=== PATIENT | female | born 1985 | race Caucasian/White ===

== ENCOUNTER → 2023-04-28 | Emergency (ER) | payer SELFPAY ==
--- OUTSIDE RECORDS SUMMARY | 2023-04-28 03:02 | XMS REPORT | Continuity of Care Document ---
Author Name Unknown Address [address] [place] [address] [phone] [facility] Address [facility] [place] [address] Care Team Providers Care Specialty Development Consultant Name Role Phone NONE, NONE Primary Care Physician Unavailab DR WILDER Rosales Attending Clinician Javier HUANG, DR BARRETT Attending Clinician Unavailable DR WILDER PINZON Admitting Clinician Javier HUANG, DR BARRETT Admitting Clinician Unavailable Payers Payer Name Policy Type Policy Number Effective Date Expirati on Date Source 1000 [id number] 2022 00:00:00 Allergies, Adverse Reactions, Alerts Allergy Name Allergy Type Status Severity Reaction(s) Onset Date Inactive Date Treating Clinician Comments Source No Known Drug Allergie s DA Active Unknown 09-22 00:00: 00 [facility] Vital Signs Vital Name Observation Time Observation Value Comments S ource Height 2022-11-04 16:26:00 175.26 CM Weight 2022-11-04 16:26:00 92.3 KG Height 2022-09-11 17:07:00 175.26 CM Weight 2022-09-11 17:07:00 90.71 KG Encounters Start Date/Time End Date/Time Encounter Type Admission Type Attending Clinicians Care Facility Care Department Encounter ID Source 2022-11-04 16:17:00 2022-11-04 18:49:00 Emergency E WILDER PINZON [facility] [id number] [facility] 2022-09-11 16:51:00 2022-09-11 19:24:00 Emergency E ARNOLD HUANG [facility] [id number] [facility] Results Test Description Test Time Test Comments Results Result Co mments Source LIPASE [id number] 17:41:00* Test Item Value Reference Range Interpretation Comme nts LIPASE (test code = 60A) 30 IU/L 12-53 TROPONIN [id number] 17:40:00* Test Item Value Reference Range Interpretation Comme nts TROPONIN I (test code = A84) <2.50 pg/mL 0.00-45.20 BRAIN NATRIURETIC [id number] 17:40:00* Test Item Value Reference Range Interpretation Comme nts BNP (test code = A74) 14 pg/mL See_Comment [Automated [employer]] The system which generated this result transmitted reference range: <=100. The reference range was not used to interpret this result as normal/abnormal. PRO TIME AND [id number] 17:37:00* Test Item Value Reference Range Interpretation Comme nts PT (test code = TT) 10.8 s 9.8-13.6 INR (test code = INR) 0.9 INRH (test code = INRH) SUGGESTED THERAPEUTIC RANGE FOR INR: 2.5 - 3.5 For Patients with Prosthetic Valves or Patients with recurrent Thromboembolic Events 2.0 - 3.0 For Most Other Applications PTT (test code = PTT) 27.5 s 20.2-38.0 PTTH (test code = PTTH) To monitor the effectiveness of heparin, we offer the Anti-Xa (Heparin Assay). It can be used for either unfractionated or LMW Heparin. Order Code is ANTI-XA URINE [id number] 17:29:00* Test Item Value Reference Range Interpretation Comme nts PREG UR (test code = PGU) NEGATIVE NEGATIVE URINALYSIS WITH [id number] 17:29:00* Test Item Value Reference Range Interpretation Comme nts COLOR (test code = COLU) YELLOW YELLOW CLARITY (test code = CLA) CLEAR CLEAR GLUCOSE UR (test code = UA GLUCOSE) NEGATIVE NEGATIVE BILI UR (test code = BILE) NEGATIVE NEGATIVE KETONES UR (test code = IRINA) NEGATIVE NEGATIVE SP GRAVITY (test code = SPGR) 1.016 1.005-1.030 PH UR (test code = PH) 6.0 4.5-8.0 PROTEIN UR (test code = PU) NEGATIVE NEGATIVE UROBIL UR (test code = UROQ) 0.2 EU/dL 0.2-1.0 NITRITE UR (test code = NITRITE) POSITIVE NEGATIVE A BLOOD UR (test code = UA BLOOD) NEGATIVE NEGATIVE LEUK ES UR (test code = LEUK) 1+ NEGATIVE A WBC UR (test code = UWBC) 6 /HPF 0-5 H RBC UR (test code = URBC) 2 /HPF 0-2 EPITH UR (test code = UEPC) FEW /LPF FEW BACTERIA UR (test code = UBACT) MANY /HPF NONE A CAST UR (test code = CAST) /LPF NONE CRYSTAL UR (test code = CRYU) / LPF NONE MUCUS UR (test code = MUC) / HPF NONE AMORPH UR (test code = BERNARD) / HPF NONE TRICH UR (test code = UTRICH) /HPF NONE YEAST UR (test code = UY) /HPF NONE SPERM UR (test code = USPERM) /HPF NONE CBC (INCLUDES AUTOMATED DIFFERENTIAL)2022-11-04 17:26:00* Test Item Value Reference Range Interpretation Comme nts WBC (test code = WBC) 6.2 10\S\3/uL 4.5-11.0 RBC (test code = RBC) 3.84 10\S\6/uL 4.30-5.70 L HGB (test code = HBG) 11.8 g/dL 12.0-15.5 L HCT (test code = HCT) 36.0 % 35.0-44.0 MCV (test code = MCV) 93.8 fL 81.0-99.0 MCH (test code = MCH) 30.7 pg 27.0-31.0 MCHC (test code = MCHC) 32.8 g/dL 32.0-36.0 RDW (test code = RDW) 12.3 % 11.5-14.5 PLT (test code = PLT) 304 10\S\3/uL 130-400 MPV (test code = MPV) 10.0 fL 9.4-12.4 NEUTROP # (test code = NE#) 3.7 10\S\3/uL 1.6-8.0 LYMPH # (test code = LY#) 1.9 10\S\3/uL 1.1-3.5 MONOCYTE # (test code = MO#) 0.5 10\S\3/uL 0.0-1.1 EOSINOPH # (test code = EO#) 0.1 10\S\3/uL 0.0-0.7 BASOPHIL # (test code = BA#) 0.0 10\S\3/uL 0.0-0.3 IG # (test code = IG#) 0.02 10\S\3/uL 0.00-0.06 NRBC # (test code = NRBC#) 0.00 10\S\3/uL 0.00-0.01 NEUTROPH % (test code = NE%) 59.2 % 35.0-73.0 LYMPH % (test code = LY%) 30.7 % 20.0-55.0 MONO % (test code = MO%) 7.7 % 2.5-10.0 EOSINOPH % (test code = EO%) 1.6 % 0.0-5.0 BASOPHIL % (test code = BA%) 0.5 % 0.0-2.0 IG % (test code = IG%) 0.3 % 0.0-0.8 NRBC% (test code = NRBC%) 0.0 % 0.0-0.2 MANDIFF (test code = MDIFF) NO XR CHEST 1 VIEW [id number] 16:57:44 [facility] : 1985 Sex: FEXAMINATION:XR CHEST 1 VIEW PORTABLECLINICAL INDICATION:Female, 36 years year old with Chest painCOMPARISON: Chest radiograph 09/23/2011FINDINGS:Single view(s) of the chest submitted.Support Devices: None.Heart: Cardiac silhouette is normal in size.Mediastinum: Mediastinal contours are within normal limits for age.Lungs: Lungs are well aerated and clear. Pulmonary vessels are normal in size. Pleura: No pleural effusion is identified. No pneumothorax is present.Bones: No acute osseous abnormality. IMPRESSION:No acute cardiopulmonary disease.Electronically signed by: Caitlin Gutierrez MD 11/04/2022 4:57 PM CDTWorkstation: [id number] AND LIPASE *WW*2022-09-11 18:21:00* Test Item Value Reference Range Interpretation Comme nts AMYLASE (test code = 10A) 61 U/L 28-100 LIPASE (test code = 60A) 38 IU/L 12-53 COMPREHENSIVE METABOLIC MEDRANO *WW*2022-09-11 18:21:00* Test Item Value Reference Range Interpretation Comme nts GLUCOSE (test code = 06D) 99 mg/dL 75-100 SODIUM (test code = 01A) 138 mmol/L 136-145 POTASSIUM (test code = 01B) 3.8 mmol/L 3.6-5.1 CHLORIDE (test code = 04A) 106 mmol/L 98-107 CO2 (test code = 02A) 27 mmol/L 20-31 ANION GAP (test code = ANG) 8.8 mmol/L BUN (test code = 05D) 9 mg/dL 9-23 CREATININE (test code = 03E) 0.8 mg/dL 0.6-1.0 GFR (test code = GFR) 94 mL/min/1.73m\S\2 See_Comment [Automated message] The system which generated this result transmitted reference range: >=90. The reference range was not used to interpret this result as normal/abnormal. GFR (test code = GFRAA) 109 mL/min/1.73m\S\2 See_Comment [Automated message] The system which generated this result transmitted reference range: >=90. The reference range was not used to interpret this result as normal/abnormal. EGFR (test code = EGFR) eGFR BY CKD-EPI CALCULATION IS NOT RECOMMENDED FOR PATIENTS UNDER 18 YEARS OF AGE. BUN/CREA (test code = BCR) 11 12-20 L CALCIUM (test code = 09D) 8.4 mg/dL 8.3-10.6 BILI TOTAL (test code = 11A) 0.3 mg/dL 0.2-1.0 PROTEIN (test code = 07D) 6.3 g/dL 5.7-8.2 ALBUMIN (test code = 08D) 4.0 g/dL 3.2-4.8 GLOBULIN (test code = GLB) 2.3 g/dL 1.5-3.8 ALB/GLOB (test code = AGRR) 1.8 1.0-2.6 ALK PHOS (test code = 35A) 38 IU/L 46-116 L AST (test code = 30A) 15 IU/L See_Comment [Automated message] The system which generated this result transmitted reference range: <=33. The reference range was not used to interpret this result as normal/abnormal. ALT (test code = 31A) 10 IU/L 10-49 CARDIAC PROFILE 2022-09-11 18:20:00* Test Item Value Reference Range Interpretation Comme nts TROPONIN I (test code = A84) <2.50 pg/mL 0.00-45.20 CBC (INCLUDES AUTOMATED DIFFERENTIAL)*[id number] 18:09:00* Test Item Value Reference Range Interpretation Comme nts WBC (test code = WBC) 5.5 10\S\3/uL 4.5-11.0 HGB (test code = HBG) 12.4 g/dL 12.0-15.5 HCT (test code = HCT) 38.1 % 35.0-44.0 MCV (test code = MCV) 91.4 fL 81.0-99.0 MCH (test code = MCH) 29.7 pg 27.0-31.0 MCHC (test code = MCHC) 32.5 g/dL 32.0-36.0 RDW (test code = RDW) 12.2 % 11.5-14.5 PLT (test code = PLT) 244 10\S\3/uL 130-400 MPV (test code = MPV) 10.1 fL 9.4-12.4 NEUTROP # (test code = NE#) 3.0 10\S\3/uL 1.6-8.0 LYMPH # (test code = LY#) 1.9 10\S\3/uL 1.1-3.5 MONOCYTE # (test code = MO#) 0.5 10\S\3/uL 0.0-1.1 EOSINOPH # (test code = EO#) 0.1 10\S\3/uL 0.0-0.7 BASOPHIL # (test code = BA#) 0.0 10\S\3/uL 0.0-0.3 IG # (test code = IG#) 0.02 10\S\3/uL 0.00-0.06 NRBC # (test code = NRBC#) 0.00 10\S\3/uL 0.00-0.01 NEUTROPH % (test code = NE%) 54.7 % 35.0-73.0 LYMPH % (test code = LY%) 33.6 % 20.0-55.0 MONO % (test code = MO%) 9.3 % 2.5-10.0 EOSINOPH % (test code = EO%) 1.5 % 0.0-5.0 BASOPHIL % (test code = BA%) 0.5 % 0.0-2.0 IG % (test code = IG%) 0.4 % 0.0-0.8 NRBC% (test code = NRBC%) 0.0 % 0.0-0.2 MANDIFF (test code = WMDIFF) NO NO RBC MORPH (test code = WRBCMOR) NORMAL
[2023-04-28 04:27] LABS: Protime INR 1.08
[2023-04-28 04:30] LABS: Absolute Lymphocytes (CBC) 1.6 K/uL (0.7-4.9); Hematocrit 37.6 % (36.0-45.0); Lymphocytes % 38.3 % (15.3-44.8); MPV 8.4 fL (7.6-11.3); Platelets 268 thou/uL (152-406); RBC Red Blood Cell Count 4.18 M/uL (3.86-4.86)
[2023-04-28 04:40] LABS: ALT/SGPT 17 U/L (13-56); AST/SGOT 9 U/L (15-37); Albumin 3.5 g/dL (3.4-5.0); Alkaline Phosphatase 50 U/L (45-117); BUN Blood Urea Nitrogen 9 mg/dL (7-18); Bicarbonate 29 mEq/L (21-32); Bilirubin Direct 0.1 mg/dL (0-0.2); Bilirubin Indirect, Calculated 0.2 mg/dL (0.2-0.8); Bilirubin Total 0.3 mg/dL (0.2-1.0); Glomerular Filtration Rate 81 ml/min (=/>90); Glucose Level 101 mg/dL (74-106); Lipase 31 U/L (13-75); Magnesium 2.1 mg/dL (1.6-2.4); NT PRO-BNP 47 pg/mL (<125); Potassium 3.6 mEq/L (3.5-5.1); Protein, Total 7.4 g/dL (6.4-8.2); Sodium Level 138 mEq/L (136-145); Troponin High Sensitivity 4.8 pg/mL (<58.9)
[2023-04-28 04:46] LABS: C-Reactive Protein < 2.90 mg/L (<3.00)
[2023-04-28 05:30] LABS: Thyroid Stimulating Hormone 0.674 uIU/mL (0.358-3.740)
--- NOTE | 2023-04-28 06:45 | EDPHYS ---
Physician Documentation [facility] Name: Sari Wilde Age: 37 yrs Sex: Female : 1985 Arrival Date: 04/28/2023 Time: 02:59 Bed 4 Private MD: ED Physician Ishmael Steen HPI: 04/28 03:16 This 37 yrs old Female presents to ER via Ambulatory with complaints of PT states she sp4 has been having chest pain for 3+ weeks. 03:29 History 7-year-old female with no significant past medical history presents with acute sp4 onset all midsternal sharp stabbing chest pain starting 4 days ago/ patient states that she has had worsening midsternal stabbing chest pains today associated with shortness of breath. Pains are nonexertional. Patient has no history of inborn cardiac defects, history is negative for prior coronary artery disease. . Historical: - Allergies: 03:14 No Known Allergies; as6 - PMHx: 03:14 None; as6 - PSHx: 03:14 None; as6 - Immunization history:: Adult Immunizations up to date. - Social history:: Smoking status: Patient reports the use of cigarette tobacco products. - Family history:: not pertinent. ROS: 03:29 Constitutional: Negative for fever, chills, and weight loss, positive chest pain sp4 03:29 All other systems are negative, Exam: 03:29 Constitutional: This is a well developed, well nourished patient who is awake, alert, sp4 and in no acute distress. Head/Face: Normocephalic, atraumatic. Eyes: Pupils equal round and reactive to light, extra-ocular motions intact. Lids and lashes normal. Conjunctiva and sclera are not injected. Cornea within normal limits. Periorbital areas with no swelling, redness, or edema. ENT: Nares patent. No nasal discharge, no septal abnormalities noted. Tympanic membranes are normal and external auditory canals are clear. Oropharynx with no redness, swelling, or masses, exudates, or evidence of obstruction, uvula midline. Mucous membranes moist. Neck: Trachea midline, no thyromegaly or masses palpated, and no cervical lymphadenopathy. Supple, full range of motion without nuchal rigidity, or vertebral point tenderness. Chest/axilla: Normal chest wall appearance and motion. Nontender with no deformity. No lesions are appreciated. Cardiovascular: Regular rate and rhythm with a normal S1 and S2. No gallops, murmurs, or rubs. Normal PMI, no JVD. No pulse deficits. Respiratory: Lungs have equal breath sounds bilaterally, clear to auscultation and percussion. No rales, rhonchi or wheezes noted. No increased work of breathing, no retractions or nasal flaring. Abdomen/GI: Soft, non-tender, with normal bowel sounds. No distension or tympany. No guarding or rebound. No evidence of tenderness throughout. Back: No spinal tenderness. No costovertebral tenderness. Skin: Warm, dry with normal turgor. Normal color with no rashes, no lesions, and no evidence of cellulitis. MS/ Extremity: Pulses equal, no cyanosis. Neurovascular intact. Full, normal range of motion. Neuro: Awake and alert, GCS 15, oriented to person, place, time, and situation. Cranial nerves II-XII grossly intact. Motor strength 5/5 in all extremities. Sensory grossly intact. Psych: Awake, alert, with orientation to person, place and time. Behavior, mood, and affect are within normal limits 05:01 ECG was reviewed by the Attending Physician. EKG at 0 339 reveals normal sinus rhythm sp4 overall normal EKG, rate 74 Vital Signs: 03:14 BP 125 / 85; Pulse 84; Resp 18 S; Temp 98.4(O); Pulse Ox 97% on R/A; Weight 86.64 kg as6 (R); Height 5 ft. 9 in. (R); Pain 5/10; 04:30 Pulse 78; Resp 14; Pulse Ox 100% ; jj7 05:22 BP 125 / 61; Pulse 69; Resp 14; Pulse Ox 100% ; jj7 06:30 BP 114 / 80; Pulse 88; Resp 17; Pulse Ox 98% ; jj7 03:14 Body Mass Index 28.21 (86.64 kg, 175.26 cm) as6 03:14 Pain Scale: Adult as6 MDM: 03:22 Patient medically screened. sp4 06:36 ED course: CT - TECHNIQUE: Axial computed tomographic angiography images of the chest sp4 with intravenous contrast. Sagittal and coronal reformatted images were created and reviewed. This CT exam was performed using one or more of the following dose reduction techniques: automated exposure control, adjustment of the mA and/or kV according to patient size, and/or use of iterative reconstruction technique. MIP reconstructed images were created and reviewed. COMPARISON: No relevant prior studies available. FINDINGS: Pulmonary arteries: Unremarkable. No pulmonary embolism. Aorta: No acute findings. No thoracic aortic aneurysm. Inferior vena cava: Reflux of contrast into the IVC and hepatic veins. Lungs: Unremarkable. No mass. No consolidation. Pleural space: Unremarkable. No significant effusion. No pneumothorax. Heart: Unremarkable. No cardiomegaly. No significant pericardial effusion. No evidence of RV dysfunction. Bones/joints: No acute fracture. No dislocation. Soft tissues: Unremarkable. Lymph nodes: Unremarkable. No enlarged lymph nodes. Gallbladder and bile ducts: Gallbladder is surgically absent. IMPRESSION: No acute finding in the chest. No evidence of pulmonary embolism. 06:41 Differential Diagnosis chest discomfort . Data reviewed: vital signs, nurses notes, lab sp4 test result(s), EKG, radiologic studies, CT scan, plain films. Consideration of Admission/Observation Escalation of care including admission/observation considered. ED course: Workup today is basically normal, normal thyroid function, normal electrolyte panel normal EKG and normal CTA of the chest. Patient will be referred to deployment specialist on outpatient basis. This time there is no signs of emergent impending medical problem. Patient stable for discharge home. Will refer to Dr. Michelle with Cardiology.. 04/28 03:17 Order name: Basic Metabolic Panel; Complete Time: 06:36 sp4 04/28 03:17 Order name: CBC with Diff; Complete Time: 04:56 sp4 04/28 03:17 Order name: LFT's; Complete Time: 06:36 sp4 04/28 03:17 Order name: Magnesium; Complete Time: 06:36 sp4 04/28 03:17 Order name: NT PRO-BNP; Complete Time: 06:36 sp4 04/28 03:17 Order name: PT-INR; Complete Time: 04:56 sp4 04/28 03:17 Order name: Troponin HS; Complete Time: 06:36 sp4 04/28 04:20 Order name: C-Reactive Protein; Complete Time: 06:36 EDMS 04/28 04:20 Order name: Lipase; Complete Time: 06:36 EDMS 04/28 05:13 Order name: T4 Free; Complete Time: 06:36 EDMS 04/28 05:13 Order name: Thyroid Stimulating Hormone; Complete Time: 06:36 EDCO 04/28 03:17 Order name: XRAY Chest (1 view) 4 04/28 05:08 Order name: CT Chest Angio 4 04/28 03:17 Order name: EKG; Complete Time: 03:18 4 04/28 03:17 Order name: Cardiac monitoring; Complete Time: 03:56 4 04/28 03:17 Order name: EKG - Nurse/Tech; Complete Time: 03:56 sp4 04/28 03:17 Order name: IV Saline Lock; Complete Time: 03:56 4 04/28 03:17 Order name: Labs collected and sent; Complete Time: 03:56 4 04/28 03:17 Order name: O2 Per Protocol; Complete Time: 05:03 4 04/28 03:17 Order name: O2 Sat Monitoring; Complete Time: 05:03 4 EC:01 Rate is 74 beats/min. Rhythm is regular, Normal Sinus Rhythm. QRS [place] is Normal. MO sp4 interval is normal. QRS interval is normal. QT interval is normal. No Q waves. T waves are Normal. No ST changes noted. Clinical impression: Normal ECG. Interpreted by me. Reviewed by me. Administered Medications: No medications were administered Disposition Summary: 04/28/23 06:44 Discharge Ordered Problem: new sp4 Symptoms: have improved sp4 Condition: Stable sp4 Diagnosis - Chest pain, unspecified sp4 - Atypical chest pain sp4 Followup: sp4 - With: Tashi Michelle MD - When: 7 - 10 days - Reason: Recheck today's complaints Discharge Instructions: - Discharge Summary Sheet sp4 - Nonspecific Chest Pain, Adult, [id number] sp4 Forms: - Patient Portal Instructions sp4 Signatures: Dispatcher [employer] Blake Rodriguez RN RN as6 Ishmael Steen MD MD sp4 Corrections: (The following items were deleted from the chart) 04:20 03:29 C-REACTIVE PROTEIN+C.LAB.BRZ ordered. EDMS EDMS 04:20 03:29 LIPASE+C.LAB.BRZ ordered. EDMS EDMS 05:13 05:04 THYROID STIMULAT HORMONE+C.LAB.BRZ ordered. EDMS EDMS 05:13 05:04 T4 FREE+C.LAB.BRZ ordered. EDMS EDMS
--- NOTE | 2023-04-28 06:45 | ER ---
Nurse's Notes [facility] Name: Sari Wilde Age: 37 yrs Sex: Female : 1985 Arrival Date: 04/28/2023 Time: 02:59 Bed 4 Private MD: Diagnosis: Chest pain, unspecified;Atypical chest pain Presentation: 04/28 03:14 Chief complaint: Patient states: chest pain for the last 4 days with worsening pain as6 tonight. Coronavirus screen: At this time, the client does not indicate any symptoms associated with coronavirus-19. Ebola Screen: No symptoms or risks identified at this time. Initial Sepsis Screen: Does the patient meet any 2 criteria? No. Patient's initial sepsis screen is negative. Does the patient have a suspected source of infection? No. Patient's initial sepsis screen is negative. Risk Assessment: Do you want to hurt yourself or someone else? Patient reports no desire to harm self or others. Onset of symptoms was April 28, 2023. 03:14 Acuity: DARION 3 as6 03:14 Method Of Arrival: Ambulatory as6 Historical: - Allergies: 03:14 No Known Allergies; as6 - PMHx: 03:14 None; as6 - PSHx: 03:14 None; as6 - Immunization history:: Adult Immunizations up to date. - Social history:: Smoking status: Patient reports the use of cigarette tobacco products. - Family history:: not pertinent. Screenin:30 [facility] ED Fall Risk Assessment (Adult) History of falling in the last 3 months, jj7 including since admission No falls in past 3 months (0 pts) Confusion or Disorientation No (0 pts) Intoxicated or Sedated No (0 pts) Impaired Gait No (0 pts) Mobility Assist Device Used No (0 pt) Altered Elimination No (0 pt) Score/Fall Risk Level 0 - 2 = Low Risk Oriented to surroundings, Maintained a safe environment, Educated pt \T\ family on fall prevention, incl call for assistance when getting out of bed. Abuse screen: Denies threats or abuse. Nutritional screening: No deficits noted. Tuberculosis screening: No symptoms or risk factors identified. Assessment: 03:30 General: Appears in no apparent distress. comfortable, Behavior is calm, cooperative, jj7 appropriate for age. Pain: Complains of pain in left breast. Cardiovascular: Reports chest pain, Chest pain began 4 days ago. Vital Signs: 03:14 BP 125 / 85; Pulse 84; Resp 18 S; Temp 98.4(O); Pulse Ox 97% on R/A; Weight 86.64 kg as6 (R); Height 5 ft. 9 in. (R); Pain 5/10; 04:30 Pulse 78; Resp 14; Pulse Ox 100% ; jj7 05:22 BP 125 / 61; Pulse 69; Resp 14; Pulse Ox 100% ; jj7 06:30 BP 114 / 80; Pulse 88; Resp 17; Pulse Ox 98% ; jj7 03:14 Body Mass Index 28.21 (86.64 kg, 175.26 cm) as6 03:14 Pain Scale: Adult as6 Vitals: 04:30 Cardiac Rhythm Assessment Regular. jj7 ED Course: 03:02 Patient arrived in ED. jj6 03:14 Arm band placed on. as6 03:15 Triage completed. as6 03:16 Ishmael Steen MD is Attending Physician. sp4 03:28 XRAY Chest (1 view) In Process Unspecified. EDMS 03:30 Patient has correct armband on for positive identification. Bed in low position. Call jj7 light in reach. Adult w/ patient. Client placed on continuous cardiac and pulse oximetry monitoring. NIBP monitoring applied. awake overnight monitor on. Warm blanket given. 03:57 Inserted saline lock: 20 gauge in left antecubital area, using aseptic technique. Blood oe collected. 03:58 Basic Metabolic Panel Sent. oe 03:58 CBC with Diff Sent. oe 03:58 LFT's Sent. oe 03:58 Magnesium Sent. oe 03:58 NT PRO-BNP Sent. oe 03:58 PT-INR Sent. oe 03:58 Troponin HS Sent. oe 05:47 CT Chest Angio In Process Unspecified. EDMS 06:43 Tashi Michelle MD is Referral Physician. sp4 07:02 No provider procedures requiring assistance completed. IV discontinued, intact, jj7 bleeding controlled, No redness/swelling at site. Pressure dressing applied. Administered Medications: No medications were administered Medication: 03:30 VIS not applicable for this client. jj7 Outcome: 06:44 Discharge ordered by . sp4 07:02 Discharged to home ambulatory, with significant other, jj7 07:02 Condition: good 07:02 Discharge instructions given to patient, Instructed on discharge instructions, follow up and referral plans. Demonstrated understanding of instructions, follow-up care, 07:03 Patient left the ED. jj7 Signatures: Dispatcher [employer] EDRI Dakota Womack Jennifer jj6 Blake Ríos RN RN as6 Roro Carvalho RN RN jj7 Ishmael Steen MD MD sp4
[2023-04-28 07:45] VITALS: TEMP 98.4
[2023-04-28 07:59] VITALS: BP 114/80; O2SAT 98
--- NOTE | 2023-04-28 14:47 | RAD REPORT ---
EXAM DESCRIPTION: CT - Chest Angio - 04/28/2023 6:37 am CLINICAL HISTORY: The patient is 37 years old and is Female; CHEST PAIN TECHNIQUE: Axial computed tomographic angiography images of the chest with intravenous contrast. Sag ittal and coronal reformatted images were created and reviewed. TECHNIQUE: Axial computed tomographic angiography images of the chest with intravenous contrast. S agittal and coronal reformatted images were created and reviewed. This CT exam was performed using one or more of the following dose reduction techniques: automated exposure control, adjustment of t he mA and/or kV according to patient size, and/or use of iterative reconstruction technique. MIP re constructed images were created and reviewed. COMPARISON: No relevant prior studies available. FINDINGS: Pulmonary arteries: Unremarkable. No pulmonary embolism. Aorta: No acute findings. No thoracic aortic aneurysm. Inferior vena cava: Reflux of contrast into the IVC and hepatic veins. Lungs: Unremarkable. No mass. No consolidation. Pleural space: Unremarkable. No significant effusion. No pneumothorax. Heart: Unremarkable. No cardiomegaly. No significant pericardial effusion. No evidence of R V dysfunction. Bones/joints: No acute fracture. No dislocation. Soft tissues: Unremarkable. Lymph nodes: Unremarkable. No enlarged lymph nodes. Gallbladder and bile ducts: Gallbladder is surgically absent. IMPRESSION: No acute finding in the chest. No evidence of pulmonary embolism. Electronically signed by: Charles Rushing MD 04/28/2023 06:22 AM [employer] Due to temporary technical issues with the PACS/Fluency reporting system, reports are being signed by the in house radiologists without review as a courtesy to insure prompt reporting. The interpreting radiologist is fully responsible for the content of the report.
--- NOTE | 2023-04-28 15:23 | RAD REPORT ---
EXAM DESCRIPTION: RAD - Chest Single View - 04/28/2023 3:26 am CLINICAL HISTORY: The patient is 37 years old and is Female; CHEST PAIN TECHNIQUE: Single view of the chest. COMPARISON: No relevant prior studies available. FINDINGS: Lungs: No pulmonary vascular congestion or consolidation. Pleural space: Unremarkable. No pneumothorax. Heart: Unremarkable. No cardiomegaly. Mediastinum: Unremarkable. Normal mediastinal contour. Bones/joints: No acute fracture. Upper abdomen: No free air in the visualized upper abdomen. IMPRESSION: No acute cardiopulmonary process identified. Electronically signed by: Grisel Serna MD 04/28/2023 04:04 AM AVIONICS MECHANIC Due to temporary technical issues with the PACS/Fluency reporting system, reports are being signed by the in house radiologists without review as a courtesy to insure prompt reporting. The interpreting radiologist is fully responsible for the content of the report.
--- NOTE | 2023-04-30 13:28 | EKG ---
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
== END ==
LOC: ER 02:59
DX: R07.89 Other chest pain (principal)
CPT/HCPCS: 36415; 71045; 71275; 80048; 80076; 83690; 83735; 83880; 84439; 84443; 84484; 85025; 85610; 86140; 93005; 99284; Q9967